=== PATIENT | male | born 1955 | race Caucasian/White ===

== ENCOUNTER → 2020-09-16 | Outpatient (CLI) | payer OTHER ==
[~2020-09-16] MED LIST: ASPIRIN EC81 MG PO; COREG12.5 MG PO; ISOSORBIDE MONO30 MG PO; LOTENSIN40 MG PO; NITROSTAT0.4 MG SL; OMEPRAZOLE40 MG PO; ZOCOR20 MG PO
== END ==
LOC: HEART 5 10:28
DX: R07.9 Chest pain, unspecified (principal); R94.39 Abnormal result of other cardiovascular function study

== ENCOUNTER → 2020-11-18 | Outpatient (CLI) | payer OTHER | LOC: HEART 5 08:38 | DX: R07.9 Chest pain, unspecified (principal); R06.02 Shortness of breath; R94.39 Abnormal result of other cardiovascular function study; I08.1 Rheumatic disorders of both mitral and tricuspid valves | CPT/HCPCS: 93306 ==

== ENCOUNTER → 2020-12-11 | Outpatient (CLI) | payer OTHER ==
[2020-12-11 11:17] LABS: RED BLOOD COUNT 4.68 M/UL (4.20-5.50); WHITE BLOOD COUNT 6.6 K/UL (4.5-11.0)
[2020-12-11 11:35] LABS: BUN/CREATININE RATIO 15 (0-10)
== END ==
LOC: LAB 10:35
PROVIDERS: Internal Medicine Interventional Cardiology
DX: I20.9 Angina pectoris, unspecified (principal); I10 Essential (primary) hypertension; E78.00 Pure hypercholesterolemia, unspecified; R00.2 Palpitations; R06.02 Shortness of breath; R94.31 Abnormal electrocardiogram [ECG] [EKG]; R00.1 Bradycardia, unspecified
CPT/HCPCS: 36415; 80048; 85025; 85610; 85730; 93005

== ENCOUNTER 2020-12-22 08:50 | Outpatient (CLI) | payer OTHER ==
[~2020-12-22] VITALS: Ht 190.5 cm; Wt 106.1 kg
[2020-12-22] MEDS ORDERED: LOTENSIN40 MG PO (09:58)
[2020-12-22] MEDS ORDERED: COREG12.5 MG PO (09:58)
[2020-12-22] MEDS ORDERED: ASPIRIN EC81 MG PO (09:58)
[2020-12-22] MEDS ORDERED: NITROSTAT0.4 MG SL (09:59)
[2020-12-22] MEDS ORDERED: ISOSORBIDE MONO30 MG PO (09:59)
[2020-12-22] MEDS ORDERED: OMEPRAZOLE40 MG PO (09:59)
[2020-12-22] MEDS ORDERED: ZOCOR20 MG PO (10:00)
== END 2020-12-22 22:35 ==
LOC: CATH 08:50 → PROG CARE 12:36 → CATH 22:35
DX: I25.118 Atherosclerotic heart disease of native coronary artery with other forms of angina pectoris (principal); I10 Essential (primary) hypertension; E78.00 Pure hypercholesterolemia, unspecified; R00.2 Palpitations; R06.02 Shortness of breath
CPT/HCPCS: 99152; C1769; C1894; J1644; J2250; J3010; J7120; Q9967

== ENCOUNTER → 2021-04-08 | Outpatient (CLI) | payer OTHER | LOC: HEART 5 08:13 | DX: I25.10 Atherosclerotic heart disease of native coronary artery without angina pectoris (principal); Z95.1 Presence of aortocoronary bypass graft; I51.7 Cardiomegaly; I08.3 Combined rheumatic disorders of mitral, aortic and tricuspid valves | CPT/HCPCS: 93306 ==